=== PATIENT | male | born 1995 | race Caucasian/White ===

== ENCOUNTER 2017-11-10 02:23 | Emergency (ER) | payer SELFPAY ==
--- NOTE | 2017-11-10 03:33 | ER ---
Nurse's Notes [facility] Name: William Negron Age: 22 yrs Sex: Male : 1995 Arrival Date: 11/10/2017 Time: 02:24 Bed Waiting Private MD: Diagnosis: Presentation: 11/10 02:32 Presenting complaint: Patient states: I've had a tooth infection for 3 weeks. Saw a tl2 dentist and he put me on amoxicillin and tylenol 3. I finished the antibiotics and I'm still having pain. I quit taking the Tylenol 3 because it's not working. Transition of care: patient was not received from another setting of care. Onset of symptoms was October 22, 2017. Risk Assessment: Do you want to hurt yourself or someone else? Patient reports no desire to harm self or others. Initial Sepsis Screen: Does the patient meet any 2 criteria? No. Patient's initial sepsis screen is negative. Does the patient have a suspected source of infection? No. Patient's initial sepsis screen is negative. Care prior to arrival: None. 02:32 Method Of Arrival: Ambulatory tl2 02:32 Acuity: TADEO 4 tl2 Triage Assessment: 02:33 General: Appears in no apparent distress. uncomfortable, Behavior is calm, cooperative, tl2 appropriate for age. Pain: Complains of pain in Tooth on right side. EENT: Reports pain in lower right first molar. Historical: - Allergies: 02:33 No Known Allergies; tl2 - Home Meds: 02:33 None [Active]; tl2 - PMHx: 02:33 None; tl2 - PSHx: 02:33 None; tl2 - Immunization history:: Adult Immunizations up to date. - Social history:: Smoking status: Patient uses tobacco products, Quit 2 weeks ago. - Ebola Screening: : No symptoms or risks identified at this time. Screenin:35 Abuse screen: Denies threats or abuse. Nutritional screening: No deficits noted. tl2 Tuberculosis screening: No symptoms or risk factors identified. Fall Risk None identified. Vital Signs: 02:33 BP 146 / 87; Pulse 72; Resp 18; Temp 98.5(O); Pulse Ox 98% on R/A; Weight 81.65 kg; tl2 Height 5 ft. 8 in. (172.72 cm); Pain 10/10; 02:33 Body Mass Index 27.37 (81.65 kg, 172.72 cm) tl2 ED Course: 02:24 Patient arrived in ED. es 02:33 Triage completed. tl2 02:33 Arm band placed on right wrist. tl2 02:50 Patient's name was called from ER lobby. No response. 02:56 Aydin Almazan MD is Attending Physician. wa 03:10 Patient's name was called from ER lobby. No response. 03:32 Patient's name was called from ER lobby. No response. fc Administered Medications: No medications were administered Outcome: 03:32 Patient left the ED. fc Signatures: Miranda Huffman Felicia, RN RN Khloe Hui RN RN tl2 Aydin Almazan MD MD ut
[2017-11-10 03:52] VITALS: BP 146/87; TEMP 98.5; O2SAT 98
== END 2017-11-10 03:32 | disposition left against medical advice (07) ==
LOC: ER 02:23
DX: K08.89 Other specified disorders of teeth and supporting structures (principal); Z53.21 Procedure and treatment not carried out due to patient leaving prior to being seen by health care provider
CPT/HCPCS: 99281

== ENCOUNTER 2018-09-01 11:59 | Emergency (ER) | payer SELFPAY ==
--- NOTE | 2018-09-01 13:00 | ER ---
Nurse's Notes [facility] Name: William Negron Age: 23 yrs Sex: Male : 1995 Arrival Date: 09/01/2018 Time: 12:01 Bed 5 Private MD: Unknown, Unknown Diagnosis: Sprain of carpal joint of left wrist Presentation: 09/01 12:09 Presenting complaint: Patient states: i fell from a randee's shoulders and hurt my L hj wrist, denies hitting head and LOC;. Transition of care: patient was not received from another setting of care. Onset of symptoms was September 01, 2018. Risk Assessment: Do you want to hurt yourself or someone else? Patient reports no desire to harm self or others. Initial Sepsis Screen: Does the patient meet any 2 criteria? No. Patient's initial sepsis screen is negative. Does the patient have a suspected source of infection? No. Patient's initial sepsis screen is negative. Care prior to arrival: None. 12:09 Method Of Arrival: Ambulatory 12:09 Acuity: TADEO 4 hj Historical: - Allergies: 12:10 No Known Allergies; hj - PMHx: 12:10 None; hj - PSHx: 12:10 None; hj - Immunization history:: Adult Immunizations up to date. - Social history:: Smoking status: Patient uses tobacco products, denies chronic smoking, but will smoke occasionally. - Ebola Screening: : Patient negative for fever greater than or equal to 101.5 degrees Fahrenheit, and additional compatible Ebola Virus Disease symptoms Patient denies exposure to infectious person Patient denies travel to an Ebola-affected area in the 21 days before illness onset No symptoms or risks identified at this time. Screenin:12 Abuse screen: Denies threats or abuse. Denies injuries from another. Nutritional aj screening: No deficits noted. Tuberculosis screening: No symptoms or risk factors identified. Fall Risk None identified. Assessment: 12:20 General: Appears in no apparent distress. comfortable, Behavior is calm, cooperative, aj appropriate for age. Pain: Complains of pain in left wrist. Neuro: Level of Consciousness is awake, alert, obeys commands, Oriented to person, place, time, situation, Appropriate for age. Respiratory: Airway is patent Respiratory effort is even, unlabored, Respiratory pattern is regular, symmetrical. Derm: Skin is intact, is healthy with good turgor, Skin is pink, warm \T\ dry. normal. Musculoskeletal: Reports pain in left wrist and left hand. Vital Signs: 12:10 BP 124 / 66; Pulse 76; Resp 18; Temp 99.0(O); Pulse Ox 100% on R/A; Weight 81.65 kg; hj Height 5 ft. 9 in. (175.26 cm); Pain 10/10; 12:10 Body Mass Index 26.58 (81.65 kg, 175.26 cm) ED Course: 12:01 Patient arrived in ED. ag5 12:01 Unknown, Unknown is Private Physician. ag5 12:10 Triage completed. hj 12:12 Arm band placed on left wrist. hj 12:15 Jose Cortez MD is Attending Physician. rn 12:19 Sue Dumont RN is Primary Nurse. aj 12:37 XRAY Wrist LEFT 3 view In Process Unspecified. EDMS 12:59 Geovanny Murdock MD is Referral Physician. rn 13:08 Referral Physician role handed off by Geovanny Murdock MD rn 13:12 Patient has correct armband on for positive identification. aj 13:12 No provider procedures requiring assistance completed. Patient did not have IV access aj during this emergency room visit. Administered Medications: No medications were administered Outcome: 12:59 Discharge ordered by . rn 13:12 Discharged to home ambulatory. aj 13:12 Condition: good 13:12 Discharge instructions given to patient, Instructed on discharge instructions, follow up and referral plans. Demonstrated understanding of instructions, follow-up care. 13:13 Patient left the ED. aj Signatures: Dispatcher [employer] EDOH Sue Dumont, RN Jose Salmeron MD MD rn Joaquin, Henry, RN RN hj Gaskin, Ajare ag5 Corrections: (The following items were deleted from the chart) 12:13 12:10 BP 131 / 69; Pulse 76bpm; Resp 18bpm; Pulse Ox 100% RA; Temp 99.0F Oral; 81.65 hj kg; Height 5 ft. 9 in.; BMI: 26.5; Pain 10/10; hj
--- NOTE | 2018-09-01 13:00 | EDPHYS ---
Physician Documentation [facility] Name: William Negron Age: 23 yrs Sex: Male : 1995 Arrival Date: 09/01/2018 Time: 12:01 Bed 5 Private MD: Unknown, Unknown ED Physician Jose Cortez HPI: 09/01 12:20 This 23 yrs old Male presents to ER via Ambulatory with complaints of Wrist rn Injury. Historical: - Allergies: 12:10 No Known Allergies; hj - PMHx: 12:10 None; hj - PSHx: 12:10 None; hj - Immunization history:: Adult Immunizations up to date. - Social history:: Smoking status: Patient uses tobacco products, denies chronic smoking, but will smoke occasionally. - Ebola Screening: : Patient negative for fever greater than or equal to 101.5 degrees Fahrenheit, and additional compatible Ebola Virus Disease symptoms Patient denies exposure to infectious person Patient denies travel to an Ebola-affected area in the 21 days before illness onset No symptoms or risks identified at this time. ROS: 12:55 Constitutional: Negative for fever, chills, and weight loss, MS/Extremity: + left wrist rn pain and swelling Neuro: Negative for numbness/tingling Exam: 12:55 Hand exam: Exam is positive for edema, Circulation is intact in all extremities. rn Pulses: are normal with no appreciated deficits, Perfusion: the extremity is normally perfused throughout, sensation intact. Compartment Syndrome exam of affected extremity: is normal. 12:55 Constitutional: This is a well developed, well nourished patient who is awake, alert, and in no acute distress. MS/ Extremity: Pulses equal, no cyanosis. Neurovascular intact. + painful ROM with tenderness just distal to radius with mild swelling. Vital Signs: 12:10 BP 124 / 66; Pulse 76; Resp 18; Temp 99.0(O); Pulse Ox 100% on R/A; Weight 81.65 kg; hj Height 5 ft. 9 in. (175.26 cm); Pain 10/10; 12:10 Body Mass Index 26.58 (81.65 kg, 175.26 cm) hj MDM: 12:15 Patient medically screened. rn 12:55 Differential diagnosis: closed fracture, contusion. Data reviewed: vital signs, nurses rn notes, radiologic studies, plain films, and as a result, I will discharge patient. Counseling: I had a detailed discussion with the patient and/or guardian regarding: the historical points, exam findings, and any diagnostic results supporting the discharge/admit diagnosis, radiology results, the need for outpatient follow up, to return to the emergency department if symptoms worsen or persist or if there are any questions or concerns that arise at home. Special discussion: I discussed with the patient/guardian in detail that at this point there is no indication for admission to the hospital. It is understood, however, that if the symptoms persist or worsen the patient needs to return immediately for re-evaluation. Based on the history and exam findings, there is no indication for further emergent testing or inpatient evaluation. I discussed with the patient/guardian the need to see the orthopedic surgeon for further evaluation of the symptoms. ED course: Pt with focal wrist tenderness, questionable carpal fracture on xray, patient didn't want to wait of results, splinted and will notify of results over the phone. Offered tylenol #3, patient states does not work on him, so declines.. 13:07 ED course: xray negative per radiology, will dc home with wrist splint.. rn 09/01 12:19 Order name: XRAY Wrist LEFT 3 view; Complete Time: 13:06 rn 09/01 12:55 Order name: Splint - Volar Wrist Splint; Complete Time: 13:12 rn Administered Medications: No medications were administered Disposition: 09/01/18 12:59 Discharged to Home. Impression: Sprain of carpal joint of left wrist. - Condition is Stable. - Discharge Instructions: Cast or Splint Care, Adult, Wrist Fracture Treated With Immobilization. - Medication Reconciliation Form, Thank You Letter, Antibiotic Education, Prescription Opioid Use form. - Follow up: Geovanny Murdock MD; When: 5 - 6 days; Reason: Recheck today's complaints, Re-evaluation by your physician. Follow up: Private Physician; When: As needed; Reason: Recheck today's complaints, Re-evaluation by your physician. - Problem is new. - Symptoms have improved. Signatures: Dispatcher [employer] EDMS Sue Dumont RN RN aj Nieto, Roman, MD MD rn Joaquin, Henry, RN RN hj Corrections: (The following items were deleted from the chart) 13:07 12:55 Splinting: Splint applied to left wrist using Orthoglass splint, applied by tech. rn Examined by me, post splint application: neurovascular intact, 2+ distal pulses palpable, brisk capillary refill noted, Patient tolerated well, rn 13:08 12:55 Splinting: Splint applied to left wrist using wrist splint, applied by nurse. rn Examined by me, post splint application: neurovascular intact, 2+ distal pulses palpable, brisk capillary refill noted, Patient tolerated well, rn 13:08 12:59 09/01/2018 12:59 Discharged to Home. Impression: Fracture of unspecified carpal rn bone, left wrist. Condition is Stable. Forms are Medication Reconciliation Form, Thank You Letter, Antibiotic Education, Prescription Opioid Use. Follow up: Geovanny Murdock; When: 5 - 6 days; Reason: Recheck today's complaints, Re-evaluation by your physician. Problem is new. Symptoms have improved. rn 13:13 13:08 09/01/2018 12:59 Discharged to Home. Impression: Sprain of carpal joint of left aj wrist. Condition is Stable. Discharge Instructions: Wrist Fracture Treated With Immobilization, Cast or Splint Care, Adult. Forms are Medication Reconciliation Form, Thank You Letter, Antibiotic Education, Prescription Opioid Use. Follow up: Private Physician; When: As needed; Reason: Recheck today's complaints, Re-evaluation by your physician. Problem is new. Symptoms have improved. rn
--- NOTE | 2018-09-01 13:02 | RAD REPORT ---
EXAM DESCRIPTION: RAD - Wrist Left 3 View - 09/01/2018 12:41 pm CLINICAL HISTORY: Pain;Swelling Pain COMPARISON: No comparisons FINDINGS: No fracture or dislocation seen. No foreign body or other soft tissue abnormality. IMPRESSION: Negative examination.
[2018-09-01 14:28] VITALS: BP 124/66; TEMP 99; O2SAT 100
== END 2018-09-01 13:13 | disposition home or self-care (01) ==
LOC: ER 11:59
DX: S63.512A Sprain of carpal joint of left wrist, initial encounter (principal); X58.XXXA Exposure to other specified factors, initial encounter; Y93.9 Activity, unspecified; Y92.9 Unspecified place or not applicable; Z72.0 Tobacco use
CPT/HCPCS: 99283

== ENCOUNTER 2018-12-12 19:53 | Emergency (ER) | payer SELFPAY ==
[2018-12-12 20:29] LABS: Absolute Lymphocytes (CBC) 3.5 K/uL (0.7-4.9); Basophils % 0.7 % (0-1.3); Hematocrit 47.1 % (39.6-49.0); Lymphocytes % 27.4 % (15.3-44.8); MPV 8.7 fL (7.6-11.3); RBC Red Blood Cell Count 5.23 M/uL (4.33-5.43)
[2018-12-12] MEDS ORDERED: ACETAMINOPHEN 500 MG TAB ONE (20:31)
[2018-12-12 20:38] LABS: Protime INR 0.98
--- NOTE | 2018-12-12 20:40 | RAD REPORT ---
EXAM DESCRIPTION: Gracy Single View12/12/2018 8:25 pm CLINICAL HISTORY: Chest pain COMPARISON: 2016 FINDINGS: The lungs appear clear of acute infiltrate. The heart is normal size IMPRESSION: No acute abnormalities displayed
[2018-12-12 20:50] LABS: ALT/SGPT 29 U/L (12-78); AST/SGOT 15 U/L (15-37); Albumin 4.3 g/dL (3.4-5.0); Alkaline Phosphatase 125 U/L (45-117); BUN Blood Urea Nitrogen 17 mg/dL (7-18); Bicarbonate 27 mmol/L (21-32); Bilirubin Direct < 0.1 mg/dL (0-0.2); Bilirubin Total 0.2 mg/dL (0.2-1.0); Glucose Level 124 mg/dL (74-106); Potassium 3.8 mmol/L (3.5-5.1); Protein, Total 7.7 g/dL (6.4-8.2); Sodium Level 138 mmol/L (136-145); Troponin (Emerg Dept Use Only) < 0.02 ng/mL (0.0-0.045)
[2018-12-12 20:51] LABS: NT PRO-BNP < 5 pg/mL (<125)
[2018-12-12 20:52] LABS: Barbiturates NEGATIVE (NEGATIVE); Benzodiazepines NEGATIVE (NEGATIVE); Cocaine NEGATIVE (NEGATIVE); METHAMPHETAM NEGATIVE (NEGATIVE); Methadone NEGATIVE (NEGATIVE); Opiates NEGATIVE (NEGATIVE); Phencyclidine NEGATIVE (NEGATIVE); THC Cannibis NEGATIVE (NEGATIVE)
[2018-12-12 21:22] LABS: Urine Blood NEGATIVE (NEG); Urine Glucose NEGATIVE (NEG); Urine Protein NEGATIVE (NEG); Urine Specific Gravity >1.030 (1.005-1.030); Urine pH 5.5 (5.0-7.0)
[2018-12-12] MEDS ORDERED: NA CHLORIDE 0.9% 1,000 ML ONE (21:25)
--- NOTE | 2018-12-12 22:00 | EDPHYS ---
Physician Documentation [facility] Name: William Negron Age: 23 yrs Sex: Male : 1995 Arrival Date: 12/12/2018 Time: 19:54 Bed 20 Private MD: ED Physician Robert Sanchez HPI: 12/12 20:13 This 23 yrs old Male presents to ER via Ambulatory with complaints of Chest pkl Pain. 20:13 The patient or guardian reports chest pain that is located primarily in the substernal pkl area. The pain does not radiate. Associated signs and symptoms: Pertinent positives: shortness of breath. The chest pain is described as squeezing. The patient has not experienced similar symptoms in the past. Historical: - Allergies: 19:59 No Known Allergies; la1 - Home Meds: 19:59 None [Active]; la1 - PMHx: 19:59 None; la1 - PSHx: 19:59 None; la1 - Immunization history:: Adult Immunizations up to date. - Social history:: Smoking status: Patient uses tobacco products, denies chronic smoking, but will smoke occasionally. - Ebola Screening: : No symptoms or risks identified at this time. ROS: 20:13 Eyes: Negative for injury, pain, redness, and discharge, ENT: Negative for injury, pkl pain, and discharge, Neck: Negative for injury, pain, and swelling. 20:13 Cardiovascular: Positive for chest pain. 20:13 Respiratory: Negative for cough, shortness of breath. 20:13 Abdomen/GI: Negative for abdominal pain, nausea, vomiting, and diarrhea. 20:13 Back: Negative for acute changes. 20:13 : Negative for urinary symptoms. 20:13 MS/extremity: Negative for acute changes. 20:13 Skin: Negative for rash. 20:13 Neuro: Negative for altered mental status. Exam: 20:13 Head/Face: Normocephalic, atraumatic. Eyes: Pupils equal round and reactive to light, pkl extra-ocular motions intact. Lids and lashes normal. Conjunctiva and sclera are non-icteric and not injected. Cornea within normal limits. Periorbital areas with no swelling, redness, or edema. ENT: Nares patent. No nasal discharge, no septal abnormalities noted. Tympanic membranes are normal and external auditory canals are clear. Oropharynx with no redness, swelling, or masses, exudates, or evidence of obstruction, uvula midline. Mucous membranes moist. Neck: Trachea midline, no thyromegaly or masses palpated, and no cervical lymphadenopathy. Supple, full range of motion without nuchal rigidity, or vertebral point tenderness. No Meningismus. Chest/axilla: Normal chest wall appearance and motion. Nontender with no deformity. No lesions are appreciated. 20:13 Cardiovascular: Rate: tachycardic, actual rate is 118 bpm, Rhythm: regular. 20:13 ECG was reviewed by the Attending Physician. 20:13 Respiratory: the patient does not display signs of respiratory distress, Respirations: normal, Breath sounds: are clear throughout. 20:13 Abdomen/GI: Bowel sounds: normal, Palpation: abdomen is soft and non-tender, in all quadrants. 20:13 Back: Exam negative for acute changes. 20:13 : Exam negative for acute changes. 20:13 Musculoskeletal/extremity: Exam is negative for acute changes. 20:13 Skin: Exam negative for rash. 20:13 Neuro: Orientation: is normal, Mentation: is normal, Cranial nerves: grossly normal, Motor: is normal. Vital Signs: 19:59 Pulse 118; Resp 16; Temp 98.4; Pulse Ox 98% on R/A; Weight 81.65 kg; Height 5 ft. 9 in. la1 (175.26 cm); 20:00 BP 175 / 140; la1 20:05 BP 124 / 61; Pulse 107; Resp 17; Pulse Ox 100% on R/A; tr5 22:00 BP 107 / 58 ; Pulse 93; Resp 17; Pulse Ox 100% on R/A; tr5 19:59 Body Mass Index 26.58 (81.65 kg, 175.26 cm) la1 MDM: 20:03 Patient medically screened. pkl 21:55 Data reviewed: vital signs, nurses notes, lab test result(s), EKG, radiologic studies, pkl plain films. ED course: Patient feeling better. Want to go home. Discussed lab. and imaging studies with patient. Advised to follow up PCP in 1 to 2 days. Patient understood in struction.. 12/12 20:12 Order name: Basic Metabolic Panel pkl 12/12 20:12 Order name: CBC with Diff pkl 12/12 20:12 Order name: LFT's pkl 12/12 20:12 Order name: Magnesium pkl 12/12 20:12 Order name: NT PRO-BNP pkl 12/12 20:12 Order name: PT-INR; Complete Time: 20:45 pkl 12/12 20:12 Order name: Troponin (emerg Dept Use Only); Complete Time: 20:55 pkl 12/12 20:12 Order name: D-Dimer; Complete Time: 20:45 pkl 12/12 20:12 Order name: UDS; Complete Time: 20:55 pkl 12/12 20:13 Order name: Basic Metabolic Panel; Complete Time: 20:55 EDMS 12/12 20:13 Order name: CBC with Automated Diff; Complete Time: 20:45 EDMS 12/12 20:13 Order name: Liver (Hepatic) Function; Complete Time: 20:55 EDMS 12/12 20:13 Order name: Magnesium; Complete Time: 20:55 EDMS 12/12 20:13 Order name: NT PRO-BNP; Complete Time: 20:55 EDMS 12/12 20:12 Order name: XRAY Chest (1 view); Complete Time: 20:45 pkl 12/12 20:12 Order name: Cardiac monitoring; Complete Time: 20:21 pkl 12/12 20:12 Order name: EKG - Nurse/Tech; Complete Time: 20:21 pkl 12/12 20:12 Order name: IV Saline Lock; Complete Time: 20:21 pkl 12/12 20:12 Order name: Labs collected and sent; Complete Time: 20:21 pkl 12/12 20:12 Order name: O2 Per Protocol; Complete Time: 20:21 pkl 12/12 20:12 Order name: O2 Sat Monitoring; Complete Time: 20:21 pkl 12/12 20:39 Order name: Urine Dipstick--Ancillary (enter results); Complete Time: 21:24 ar5 Administered Medications: 20:30 Drug: Tylenol 1000 mg Route: PO; tr5 21:00 Follow up: Response: Pain is decreased tr5 21:28 Drug: NS 0.9% 1000 ml Route: IV; Rate: 1000 ml; Site: right antecubital; tr5 22:00 Follow up: BP 107 / 58 Right Leg; Pulse 93 bpm; Resp 17 bpm; Pulse Ox 100% RA; IV tr5 Status: Completed infusion; IV Intake: 1000ml Disposition: 12/12/18 21:59 Discharged to Home. Impression: Chest pain. - Condition is Stable. - Medication Reconciliation Form, Thank You Letter, Antibiotic Education, Prescription Opioid Use form. - Follow up: Private Physician; When: 1 - 2 days; Reason: Re-evaluation by your physician. - Problem is new. - Symptoms have improved. Signatures: Dispatcher [employer] EDRobert Ross MD MD pkl Marvin Baxter RN RN la1 Aaron Prescott RN RN tr5 Corrections: (The following items were deleted from the chart) 22:56 21:59 12/12/2018 21:59 Discharged to Home. Impression: Chest pain. Condition is Stable. tr5 Forms are Medication Reconciliation Form, Thank You Letter, Antibiotic Education, Prescription Opioid Use. Follow up: Private Physician; When: 1 - 2 days; Reason: Re-evaluation by your physician. Problem is new. Symptoms have improved. pkl
--- NOTE | 2018-12-12 22:00 | ER ---
Nurse's Notes [facility] Name: William Negron Age: 23 yrs Sex: Male : 1995 Arrival Date: 12/12/2018 Time: 19:54 Bed 20 Private MD: Diagnosis: Chest pain Presentation: 12/12 19:58 Presenting complaint: Patient states: My chest has been hurting and I have pain when I la1 breathe for the last two hours. Transition of care: patient was not received from another setting of care. Onset of symptoms was December 12, 2018. Risk Assessment: Do you want to hurt yourself or someone else? Patient reports no desire to harm self or others. Initial Sepsis Screen: Does the patient meet any 2 criteria? No. Patient's initial sepsis screen is negative. Does the patient have a suspected source of infection?. Care prior to arrival: None. 19:58 Method Of Arrival: Ambulatory la1 19:58 Acuity: TADEO 2 la1 Historical: - Allergies: 19:59 No Known Allergies; la1 - Home Meds: 19:59 None [Active]; la1 - PMHx: 19:59 None; la1 - PSHx: 19:59 None; la1 - Immunization history:: Adult Immunizations up to date. - Social history:: Smoking status: Patient uses tobacco products, denies chronic smoking, but will smoke occasionally. - Ebola Screening: : No symptoms or risks identified at this time. Screenin:10 Abuse screen: Denies threats or abuse. Nutritional screening: No deficits noted. tr5 Tuberculosis screening: No symptoms or risk factors identified. Fall Risk None identified. Assessment: 20:10 General: Appears in no apparent distress. Behavior is calm, cooperative. Pain: tr5 Complains of pain in anterior aspect of left upper chest and left breast Pain radiates to left arm Pain currently is 5 out of 10 on a pain scale. Quality of pain is described as aching, pressure, radiating, Pain began 2 hours ago. Alleviated by nothing. Neuro: Level of Consciousness is awake, alert, Oriented to person, place, time, Hosp[facility] [employer] Consultant are equal bilaterally Moves all extremities. Gait is steady, Speech is normal. Cardiovascular: Heart tones present Bruits absent Capillary refill < 3 seconds Pulses are all present. Edema is absent. Respiratory: Airway is patent Respiratory effort is even, unlabored, Respiratory pattern is regular, symmetrical, Breath sounds are clear bilaterally. GI: No signs and/or symptoms were reported involving the gastrointestinal system. : No signs and/or symptoms were reported regarding the genitourinary system. EENT: No signs and/or symptoms were reported regarding the EENT system. Derm: Skin is intact, Skin is dry. Musculoskeletal: Capillary refill < 3 seconds, Range of motion: intact in all extremities. Vital Signs: 19:59 Pulse 118; Resp 16; Temp 98.4; Pulse Ox 98% on R/A; Weight 81.65 kg; Height 5 ft. 9 in. la1 (175.26 cm); 20:00 BP 175 / 140; la1 20:05 BP 124 / 61; Pulse 107; Resp 17; Pulse Ox 100% on R/A; tr5 22:00 BP 107 / 58 ; Pulse 93; Resp 17; Pulse Ox 100% on R/A; tr5 19:59 Body Mass Index 26.58 (81.65 kg, 175.26 cm) la1 ED Course: 19:54 Patient arrived in ED. ag3 19:59 Triage completed. la1 19:59 Arm band placed on right wrist. la1 20:01 Aaron Prescott, RN is Primary Nurse. tr5 20:03 Robert Sanchez MD is Attending Physician. pkl 20:10 Awaiting lab results. tr5 20:10 Patient has correct armband on for positive identification. Placed in gown. Bed in low tr5 position. Call light in reach. monitor tech on. Pulse ox on. NIBP on. Door closed. Noise minimized. 20:15 EKG done, by ED staff. tr5 20:20 Inserted saline lock: 20 gauge in right antecubital area, using aseptic technique. tr5 20:22 Initial lab(s) drawn, by me, sent to lab. tr5 20:25 XRAY Chest (1 view) In Process Unspecified. EDMS 20:35 Assisted to bathroom. tr5 20:37 Urine collected: clean catch specimen, clear. tr5 22:00 No provider procedures requiring assistance completed. IV discontinued. Patient tr5 maintains SpO2 saturation greater than 95% on room air. Administered Medications: 20:30 Drug: Tylenol 1000 mg Route: PO; tr5 21:00 Follow up: Response: Pain is decreased tr5 21:28 Drug: NS 0.9% 1000 ml Route: IV; Rate: 1000 ml; Site: right antecubital; tr5 22:00 Follow up: BP 107 / 58 Right Leg; Pulse 93 bpm; Resp 17 bpm; Pulse Ox 100% RA; IV tr5 Status: Completed infusion; IV Intake: 1000ml Intake: 22:00 IV: 1000ml; Total: 1000ml. tr5 Outcome: 21:59 Discharge ordered by . emmanuel 22:00 Discharged to home ambulatory. tr5 22:00 Condition: stable 22:00 Discharge instructions given to patient, family, Instructed on discharge instructions, follow up and referral plans. Demonstrated understanding of instructions, follow-up care. 22:00 Patient left the ED. tr5 Signatures: Dispatcher [employer] EDMS Robert Sanchez MD MD pkl Attema, Lee RN RN la1 Maura Hale Tommie, RN RN tr5 Corrections: (The following items were deleted from the chart) 20:00 19:58 Acuity: TADEO 3 la1 la1 22:57 22:56 Patient left the ED. tr5 tr5
[2018-12-12 23:10] VITALS: TEMP 98.4
[2018-12-12 23:28] VITALS: BP 124/61; O2SAT 100
== END 2018-12-12 22:56 | disposition home or self-care (01) ==
LOC: ER 19:53
DX: R07.9 Chest pain, unspecified (principal); Z72.0 Tobacco use
CPT/HCPCS: 36415; 71045; 80048; 80076; 80307; 81003; 83735; 83880; 84484; 85025; 85379; 85610; 93005; J7030